=== PATIENT | male | born 1975 | race Caucasian/White ===

== ENCOUNTER 2023-08-04 14:09 | Inpatient (IN) | payer OTHER ==
[2023-08-04 16:03] VITALS: BMI 21.7
[2023-08-04] MEDS ORDERED: BENZOCAINE/MENTHOL (CHLORASEPTIC ) LOZENGE MM PRN (16:52)
[2023-08-04] MEDS ORDERED: NICOTINE POLACRILEX 2 MG LOZENGE BC PRN (16:52)
[2023-08-04] MEDS ORDERED: DICYCLOMINE HCL 10 MG CAPSULE PO PRN (16:52)
[2023-08-04] MEDS ORDERED: ACETAMINOPHEN 325 MG TABLET (FP) PO PRN (16:52)
[2023-08-04] MEDS ORDERED: POLYETHYLENE GLYCOL (HEALTHYLAX) 3350 17 GM PACKET PO PRN (16:52)
[2023-08-04] MEDS ORDERED: BISMUTH SUBSALICYLATE 524 MG/30 ML PO PRN (16:52)
[2023-08-04] MEDS ORDERED: NALOXONE HCL 0.4 MG/ML VIAL IM PRN (16:52)
[2023-08-04] MEDS ORDERED: MAG HYDROX/AL HYDROX/SIMETH 30 ML UNIT-DOSE CUP PO PRN (16:52)
[2023-08-04] MEDS ORDERED: NALOXONE HCL (KLOXXADO) 8 MG SPRAY NS PRN (16:52)
[2023-08-04] MEDS ORDERED: P-EPHED 60MG/TRIPROLIDI 2.5MG TABLET PO PRN (16:52)
[2023-08-04] MEDS ORDERED: LOPERAMIDE HCL 2 MG CAPSULE PO PRN (16:52)
[2023-08-04] MEDS ORDERED: IBUPROFEN 400 MG TABLET (FP) PO PRN (16:52)
[2023-08-04] MEDS ORDERED: BENZONATATE 200 MG CAPSULE PO PRN (16:52)
[2023-08-04] MEDS ORDERED: ONDANSETRON *ODT* 4 MG TABLET SL PRN (16:52)
[2023-08-04] MEDS ORDERED: guaiFENesin 600 MG TABLET.ER (FP) PO PRN (16:52)
[2023-08-04] MEDS ORDERED: MAGNESIUM HYDROX 2400MG/30ML ORAL SUSPENSION 30 ML CUP PO PRN (16:52)
[2023-08-04] MEDS ORDERED: diazePAM 5 MG TABLET PO PRN (16:54)
[2023-08-04] MEDS ORDERED: diazePAM 5 MG TABLET PO SCH (17:00)
[2023-08-04] MEDS: IBUPROFEN 600 MG TABLET (FP) PO PRN (18:11)
[2023-08-04] MEDS: diazePAM 5 MG TABLET PO SCH ×2 (18:12→23:26)
[2023-08-04] MEDS: GABAPENTIN 100 MG CAPSULE PO SCH (22:18)
[2023-08-04] MEDS: MELATONIN 5 MG TABLETS PO SCH (22:18)
[2023-08-04] MEDS: THIAMINE HCL 100 MG TABLET (FP) PO SCH (22:18)
[2023-08-04] MEDS: METHOCARBAMOL 500 MG TABLET PO PRN (22:19)
[2023-08-05] MEDS: GABAPENTIN 100 MG CAPSULE PO SCH ×3 (05:43→22:27)
[2023-08-05] MEDS: diazePAM 5 MG TABLET PO SCH ×4 (05:44→23:39)
[2023-08-05] MEDS: METHOCARBAMOL 500 MG TABLET PO PRN ×2 (05:44→22:27)
[2023-08-05] MEDS: PRENATAL VITAMINS W/ FOLIC ACID TABLET (FP) PO SCH (10:12)
[2023-08-05] MEDS: IBUPROFEN 600 MG TABLET (FP) PO PRN ×2 (10:13→17:51)
[2023-08-05] MEDS ORDERED: methaDONE HCL 10 MG TABLET PO SCH (10:15)
[2023-08-05 11:34] LABS: POTASSIUM 4.4 mmol/L (3.5-5.1)
[2023-08-05 11:38] LABS: CALCIUM 8.8 mg/dL (8.5-10.1); HEMATOCRIT 38.1 % (35.4-49); HEMOGLOBIN 12.4 GM/dL (11.7-16.9); MCH 29.3 pg (25.7-33.7); MCHC 32.6 g/dl (32.0-35.9); MEAN CELL VOLUME 89.7 fl (80-96); MEAN PLT VOLUME 8.6 fl (7.5-11.1); PLATELET COUNT 261 10^3/uL (134-434); RBC 4.25 M/mm3 (4.00-5.60); RDW 14.6 % (11.9-15.9); WHITE BLOOD COUNT 4.7 K/mm3 (4.0-10.0)
[2023-08-05 11:39] LABS: ALBUMIN 3.1 g/dl (3.4-5.0)
[2023-08-05 11:42] LABS: CREATININE 0.7 mg/dL (0.55-1.3)
[2023-08-05 11:44] LABS: BILIRUBIN,TOTAL 0.5 mg/dL (0.2-1)
[2023-08-05] MEDS: MELATONIN 5 MG TABLETS PO SCH (22:27)
[2023-08-05] MEDS: THIAMINE HCL 100 MG TABLET (FP) PO SCH (22:27)
[2023-08-06] MEDS: GABAPENTIN 100 MG CAPSULE PO SCH ×3 (06:16→22:43)
[2023-08-06] MEDS: diazePAM 5 MG TABLET PO SCH ×3 (06:16→22:43)
[2023-08-06] MEDS: IBUPROFEN 600 MG TABLET (FP) PO PRN ×2 (06:55→14:25)
[2023-08-06] MEDS: PRENATAL VITAMINS W/ FOLIC ACID TABLET (FP) PO SCH (10:07)
[2023-08-06] MEDS: THIAMINE HCL 100 MG TABLET (FP) PO SCH (22:43)
[2023-08-06] MEDS: MELATONIN 5 MG TABLETS PO SCH (22:43)
[2023-08-06] MEDS: METHOCARBAMOL 500 MG TABLET PO PRN (22:44)
[2023-08-07] MEDS: diazePAM 5 MG TABLET PO SCH ×2 (05:45→17:19)
[2023-08-07] MEDS: GABAPENTIN 100 MG CAPSULE PO SCH ×3 (05:45→21:53)
[2023-08-07] MEDS: IBUPROFEN 600 MG TABLET (FP) PO PRN (05:49)
[2023-08-07] MEDS: PRENATAL VITAMINS W/ FOLIC ACID TABLET (FP) PO SCH (10:22)
[2023-08-07] MEDS: MELATONIN 5 MG TABLETS PO SCH (21:53)
[2023-08-07] MEDS: THIAMINE HCL 100 MG TABLET (FP) PO SCH (21:53)
[2023-08-07] MEDS: METHOCARBAMOL 500 MG TABLET PO PRN (21:58)
[2023-08-08] MEDS: GABAPENTIN 100 MG CAPSULE PO SCH ×2 (05:43→13:01)
[2023-08-08] MEDS ORDERED: diazePAM 5 MG TABLET PO ONE (06:00)
[2023-08-08 06:32] VITALS: RESP 18
[2023-08-08] MEDS: IBUPROFEN 600 MG TABLET (FP) PO PRN (07:58)
[2023-08-08] MEDS: PRENATAL VITAMINS W/ FOLIC ACID TABLET (FP) PO SCH (10:29)
[2023-08-08 14:23] VITALS: BP 122/75; PULSE 65; TEMP 97.9
== END 2023-08-08 13:15 | disposition other institution (70) | DRG 773 ==
LOC: YASAS 14:09 → Y3N 17:13
PROVIDERS: ADMIT Allergy & Immunology; ATTEND Surgery
PROC: HZ2ZZZZ Detoxification Services for Substance Abuse Treatment (ICD-10-PCS; principal; 2023-08-04)
DX: F10.230 Alcohol dependence with withdrawal, uncomplicated (principal); F11.20 Opioid dependence, uncomplicated; F14.20 Cocaine dependence, uncomplicated; F13.20 Sedative, hypnotic or anxiolytic dependence, uncomplicated; H54.62 Unqualified visual loss, left eye, normal vision right eye; Z20.822 Contact with and (suspected) exposure to COVID-19; Z87.01 Personal history of pneumonia (recurrent)
CPT/HCPCS: 36415; 80053; 85027; 86780; 87635